=== PATIENT | male | born 1955 | race Two or more races ===

== ENCOUNTER 2016-09-23 10:00 | Emergency (ER) | payer SELFPAY ==
[~2016-09-23] VITALS: Ht 177.8 cm; Wt 78.6 kg
[2016-09-23 10:13] VITALS: BP 179/88
== END 2016-09-23 11:13 | disposition left against medical advice (07) ==
LOC: ED 11:07
DX: M25.562 Pain in left knee (principal)
CPT/HCPCS: 99281